=== PATIENT | male | born 1955 | race Caucasian/White ===

== ENCOUNTER 2024-01-03 04:18 | Day surgery (SDC) | payer MEDICARE ==
[2024-01-02 16:49] VITALS: BMI 26.6
[2024-01-03] MEDS ORDERED: ONDANSETRON 4 MG/2 ML VIAL ONE (07:10)
[2024-01-03] MEDS ORDERED: DEXAMETHASONE SOD PHOSPHATE 4 MG/1 ML VIAL ONE (07:10)
[2024-01-03] MEDS ORDERED: ACETAMINOPHEN INJECTION 100 ML IVPB ONE (07:10)
[2024-01-03] MEDS ORDERED: PROPOFOL 20 ML ONE ×2 (07:16→08:11)
[2024-01-03] MEDS ORDERED: MIDAZOLAM HCL 2 MG/2 ML SINGLE DOSE VIAL ONE (07:38)
[2024-01-03] MEDS: ceFAZolin SODIUM 1 GM VIAL IVPB ONE (07:45)
[2024-01-03] MEDS ORDERED: ceFAZolin SODIUM 1 GM VIAL ONE (07:46)
[2024-01-03] MEDS ORDERED: oxyCODONE HCL 5 MG TABLET PO PRN ×2 (08:17→08:43)
[2024-01-03] MEDS ORDERED: DEXTROSE 5%-0.45% SALINE 1,000 ML IV SCH (08:30)
[2024-01-03] MEDS ORDERED: ONDANSETRON 4 MG/2 ML VIAL IVPUSH PRN (08:43)
[2024-01-03] MEDS ORDERED: LACTATED RINGERS SOLUTION 1,000 ML IV SCH (08:45)
[2024-01-03 12:26] VITALS: BP 153/73; PULSE 65; RESP 18; TEMP 97.8
== END 2024-01-03 12:20 | disposition home or self-care (01) ==
LOC: JASU-SURG 04:18
PROVIDERS: ATTEND Urology
PROC: 0TCB8ZZ Extirpation of Matter from Bladder, Via Natural or Artificial Opening Endoscopic (ICD-10-PCS; principal; 2024-01-03 07:30)
DX: N21.0 Calculus in bladder (principal)
CPT/HCPCS: 36415; 82360; 88300-TC; 94760; C1758; J0131